=== PATIENT | male | born 1965 | race Two or more races ===

== ENCOUNTER → 2016-06-17 | Outpatient (CLI) | payer BC ==
--- NOTE | 2016-06-17 11:05 | MM ---
Reason for exam: clinical finding. Baseline mammogram. History: Family history of breast cancer in mother at age 70. Physical Findings: Nurse Summary: more prominent right breast posterior nipple tissue, all movable, soft (nurse ts). MG 3D Diag Mammo W/Cad LEONARD Bilateral CC and MLO view(s) were taken. The breast tissue is almost entirely fat. There is no discrete abnormality. These results were verbally communicated with the patient and result sheet given to the patient on 06/17/16. ASSESSMENT: Negative, BI-RAD 1 RECOMMENDATION: Ultrasound of the right breast.
--- NOTE | 2016-06-17 11:06 | USB ---
Reason for exam: additional evaluation requested from abnormal screening. History: Family history of breast cancer in mother at age 70. US Breast Limited BILAT Right breast ultrasound demonstrates no cystic or solid lesion seen. Left breast ultrasound demonstrates no cystic or solid lesion seen. These results were verbally communicated with the patient and result sheet given to the patient on 06/17/16. ASSESSMENT: Negative, BI-RAD 1 RECOMMENDATION: Clinical management of both breasts. Manage patient on a clinical basis.
== END | disposition home or self-care (01) ==
LOC: RADMAMWWP 09:47
PROVIDERS: ATTEND Surgery
DX: N63 Unspecified lump in breast (principal); R92.8 Other abnormal and inconclusive findings on diagnostic imaging of breast
CPT/HCPCS: 76642; G0204; G0279

== ENCOUNTER → 2016-08-19 | Outpatient (CLI) | payer BC ==
--- NOTE | 2016-08-19 21:46 | CONS ---
DATE OF CONSULTATION: This patient is 50. He was asked to come into the sleep center for sleep apnea evaluation. The patient is very much convinced that he has obstructive sleep apnea, knowing that he has done some reading prior to him coming into the office and he states that he is snoring loud and he stops breathing as witnessed by his at home. He wakes up tired and fatigued during the day. He does not fall asleep; however, he has to fight to stay awake. His Appleton score is currently at 17. 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 He does not fall asleep while driving and does not seem to be at an increased risk of getting into a motor vehicle accident because of feeling drowsy or sleepy. Does not smoke does not drink. No substance abuse. He has gained around 70 pounds over the past 5 years and this has made his sleep quality worse. He has been seen by Dr. Mays for difficulties in nose breathing and halitosis. He was evaluated and a surgical recommendation was done by Dr. Mays in favor of tonsillectomy and correction of nasal passages/septum. No sleep paralysis. No hallucinations. No cataplexy. No nocturnal heartburn, palpitations. No anxiety or depression. PAST MEDICAL HISTORY: Obesity. PAST SURGICAL HISTORY: Appendectomy. ALLERGIES: Not known. OUTPATIENT MEDICATIONS: None. SOCIAL HISTORY: Nonsmoker. No history of alcohol. No history of IV drugs. FAMILY HISTORY: Negative for sleep apnea, positive for coronary artery disease. REVIEW OF SYSTEMS: Twelve-point review of systems was positive findings were all mentioned above in the history of present illness. BP is 135/84, pulse 96, respirations 16, temperature 97.8, saturation 96% on room air, weight is 294. Height is 5 foot 10. BMI is 41.5. Neck size 18 inches. GENERAL APPEARANCE: Obese, calm, comfortable. HEENT: Short neck, crowding posterior pharynx. There is no goiter, neck masses. LUNGS: Clear to auscultation. HEART: Sounds are regular rate and rhythm. Normal S1, S2. No S3, no S4. No murmurs. ABDOMEN: Soft, nontender. No organomegaly. EXTREMITIES: No edema. No cyanosis, or clubbing. IMPRESSION: 1. Obstructive sleep apnea suspected and the patient is currently under investigation. 2. Loud snoring and witnessed apneas. Rule out obstructive sleep apnea. 3. Chronic hypersomnia and Appleton score of 17. 4. Chronic rhinitis and difficulties with nose breathing and tonsillar enlargement, currently undergoing an ENT evaluation by Dr. Mays. 5. Obesity with a body mass index of 41.5 with interval 70 pounds weight gain over the past 5 years. PLAN: 1. Encourage weight loss. 2. Implement good sleep hygiene measures. 3. Continue follow-up with Dr. Mays regarding breathing and nasal symptoms. 4. Proceed with a screening polysomnogram, looking for any significant obstructive sleep apnea that warrant further treatment. We will coordinate our team with Dr. Mays. If surgery is being considered, we will delay his treatment for a while until he undergoes his complete ENT evaluation.
== END | disposition home or self-care (01) ==
LOC: SLEEP 14:42
PROVIDERS: ATTEND Internal Medicine Critical Care Medicine
DX: G47.10 Hypersomnia, unspecified (principal); R06.81 Apnea, not elsewhere classified; J31.0 Chronic rhinitis; J35.1 Hypertrophy of tonsils; E66.9 Obesity, unspecified; Z68.41 Body mass index [BMI] 40.0-44.9, adult
CPT/HCPCS: 99211

== ENCOUNTER → 2016-10-16 | Outpatient (CLI) | payer BC ==
--- NOTE | 2016-10-16 10:22 | XR ---
EXAMINATION TYPE: XR foot complete RT DATE OF EXAM ORDERED: 10/16/2016 HISTORY: M10.09 idiopathic gout. COMPARISON: None. FINDINGS: There are moderate degenerative changes in the right first MTP joint. There is a mild franco ux valgus deformity. No fracture or dislocation is seen. Note is made of a small plantar calcaneal sp ur. IMPRESSION: 1. NO ACUTE OSSEOUS LESION. 2. DEGENERATIVE CHANGE, RIGHT FIRST MTP JOINT. 3. PLANTAR CALCANEAL SPUR.
== END | disposition home or self-care (01) ==
LOC: RADXRMAIN 09:54
PROVIDERS: ATTEND Family Medicine
DX: M77.31 Calcaneal spur, right foot (principal); M10.09 Idiopathic gout, multiple sites

== ENCOUNTER → 2020-04-04 | Day surgery (SDC) | payer BC ==
[2020-04-02 10:31] VITALS: BMI 39.4
[~2020-04-04] MED LIST: LACTATED RINGERS 1,000 ML IV SCH; PROPOFOL 10 MG/ML 20 ML VIAL IV ONE
[2020-04-04 08:22] VITALS: RESP 16; TEMP 98.1
--- NOTE | 2020-04-04 08:40 | P.GSHP ---
History of Present Illness H&P Date: 04/04/20 CHIEF COMPLAINT: Colon screen HISTORY OF PRESENT ILLNESS: The patient is a 54-year-old male who presents for colon screen. Lower endoscopy was offered for further evaluation and management. PAST MEDICAL HISTORY: Please see list. PAST SURGICAL HISTORY: Please see list. MEDICATIONS: Please see list. ALLERGIES: Please see list. SOCIAL HISTORY: No illicit drug use FAMILY HISTORY: No reports of Crohn disease or ulcerative colitis. REVIEW OF ORGAN SYSTEMS: CONSTITUTIONAL: No reports of fevers or chills. PHYSICAL EXAM: VITAL SIGNS: Stable GENERAL: Well-developed pleasant in no acute distress. HEENT: No scleral icterus. Extraocular movements grossly intact. Moist buccal mucosa. NECK: Supple without lymphadenopathy. CHEST: Unlabored respirations. Equal bilateral excursions. CARDIOVASCULAR: Regular rate and rhythm. Distal 2+ pulses. ABDOMEN: Soft, nontender, nondistended. MUSCULOSKELETAL: No clubbing, cyanosis, or edema. ASSESSMENT: 1. Colon screen. PLAN: 1. Recommend proceeding with a lower endoscopy Past Medical History Past Medical History: No Reported History Additional Past Medical History / Comment(s): GOUT History of Any Multi-Drug Resistant Organisms: None Reported Past Surgical History: Appendectomy Past Anesthesia/Blood Transfusion Reactions: No Reported Reaction, Motion Sickness Smoking Status: Never smoker - Past Family History Mother Family Medical History: Cancer Medications and Allergies Home Medications Medication Instructions Recorded Confirmed Type No Known Home Medications 04/02/20 04/04/20 History Allergies Allergy/AdvReac Type Severity Reaction Status Date / Time No Known Allergies Allergy Verified 04/04/20 08:13 Surgical - Exam Vital Signs Temp Pulse Resp BP Pulse Ox 98.1 F 67 16 115/70 96 04/04/20 08:18 04/04/20 08:18 04/04/20 08:18 04/04/20 08:18 04/04/20 08:18
--- NOTE | 2020-04-04 09:11 | P.PCN ---
Date of Procedure: 04/04/20 Description of Procedure: PREOPERATIVE DIAGNOSIS: Colonoscopy screening, first Family history colon cancer POSTOPERATIVE DIAGNOSIS: Colonoscopy screening. Family history colon cancer Diverticulosis, scattered. OPERATION: Colonoscopy to the cecum, ileocecal valve and appendiceal orifice. SURGEON: Melody Groves MD. ANESTHESIA: MAC. INDICATIONS: The patient is a 54-year-old male who presents for his first colonoscopy screening. Benefits and risks were described and informed consent was obtained. DESCRIPTION OF PROCEDURE: The patient had undergone Suprep Dulcolax prep. He had been brought into the operating room and laid in the left lateral decubitus position. After adequate intravenous sedation, the rectum was examined with 2% lidocaine jelly. The prostate was unremarkable. No external hemorrhoids were encountered. The rectal tone was within normal limits. No lesions were palpated in the rectal vault. An Olympus colonoscope was advanced until the cecum, ileocecal valve and appendiceal orifice were clearly viewed. The prep was good. Scattered diverticulosis was encountered. No colonic polyps were found. No evidence of focal colitis was found. Retroflexion of the scope demonstrated grade 1 internal hemorrhoids without active bleeding or inflammation. The colon was desufflated. The patient had tolerated the procedure well. Withdrawal time was over 6 minutes. FINDINGS: Aronchick preparation quality scale 2 (1-5) Internal hemorrhoids, grade 1 No external prolapsed hemorrhoids. No arteriovenous malformations. No adenomatous polyps. No focal colitis. Scattered sigmoid diverticulosis RECOMMENDATIONS: Lower endoscopy in 5 years2024 Plan - Discharge Summary Discharge Rx Participant: No New Discharge Prescriptions: Continue No Known Home Medications Discharge Medication List No Known Home Medications 04/02/20 [History] Follow up Appointment(s)/Referral(s): Melody Groves MD [STAFF PHYSICIAN] - As Needed Patient Instructions/Handouts: Diverticulosis Diet (GEN), Diverticulosis (DC) Activity/Diet/Wound Care/Special Instructions: Repeat colonoscopy 5 years, 2024 Discharge Disposition: HOME SELF-CARE
[2020-04-04 09:22] VITALS: BP 113/73; PULSE 75
== END | disposition home or self-care (01) ==
LOC: ORWHC2ENDO 07:59
PROVIDERS: ATTEND Surgery Plastic and Reconstructive Surgery
DX: Z12.11 Encounter for screening for malignant neoplasm of colon (principal); K57.30 Diverticulosis of large intestine without perforation or abscess without bleeding; K64.0 First degree hemorrhoids; Z80.0 Family history of malignant neoplasm of digestive organs; M10.9 Gout, unspecified; Z90.49 Acquired absence of other specified parts of digestive tract
CPT/HCPCS: J2704; G0105

== ENCOUNTER → 2021-06-11 | Outpatient (CLI) | payer BC ==
--- NOTE | 2021-06-11 12:05 | XR ---
EXAMINATION TYPE: XR chest 2V DATE OF EXAM: 06/11/2021 COMPARISON: NONE TECHNIQUE: PA and lateral views submitted. HISTORY: Cough FINDINGS: The lungs are clear and there is no pneumothorax, pleural effusion, or focal pneumonia. Heart size normal. No overt failure. Biapical pleural mild hyperinflation. Hypertrophic change of the spine. Cor relate for mild COPD. Thickening along the left lateral rib cage. IMPRESSION: 1. No acute process. 2. There is increased density along the left lateral rib cage is related to previous trauma and pleur al or osseous deformities correlate with CT chest as clinically warranted.
== END | disposition home or self-care (01) ==
LOC: RADXRMAIN 11:43
PROVIDERS: ATTEND Nurse Practitioner Family
DX: R05.3 Chronic cough (principal)
CPT/HCPCS: 71046

== ENCOUNTER → 2024-05-20 | Outpatient (CLI) | payer BC ==
--- NOTE | 2024-05-20 20:09 | US ---
EXAMINATION TYPE: US carotid duplex BILAT DATE OF EXAM: 05/20/2024 COMPARISON: NONE CLINICAL INDICATION: Male, 58 years old with history of R42 Dizziness and giddiness; Additional History: .... TECHNIQUE: Grayscale, color Doppler and spectral Doppler evaluation of the bilateral carotid systems and vertebral arteries. Indirect Doppler criteria was utilized. FINDINGS: EXAM MEASUREMENTS: RIGHT: Peak Systolic Velocity (PSV) cm/sec ----- Right CCA: 111.3 ----- Right ICA: 101.1 ----- Right ECA: 118.6 ICA/CCA ratio: 0.9 RIGHT: End Diastole cm/sec ----- Right CCA: 44.5 ----- Right ICA: 35.7 ----- Right ECA: 29.9 LEFT: Peak Systolic Velocity (PSV) cm/sec ----- Left CCA: 113.4 ----- Left ICA: 103.0 ----- Left ECA: 101.7 ICA/CCA ratio: 0.9 LEFT: End Diastole cm/sec ----- Left CCA: 46.1 ----- Left ICA: 38.3 ----- Left ECA: 30.5 VERTEBRALS (direction of flow): Right Vertebral: Antegrade Left Vertebral: Antegrade Rhythm: Normal [employer] NOTES: No elevated velocities Color Doppler imaging shows patency with blood flow throughout the carotid artery. Spectral waveforms are within normal limits. IMPRESSION: Right: No hemodynamically significant stenosis. Left: No hemodynamically significant stenosis. Criteria for Assigning % of Stenosis / Diameter reduction (Estimation based on the indirect measurements of the internal carotid artery velocities (ICA PSV). 1. Normal (no stenosis)=ICA PSV < 125 cm/s: ratio < 2.0: ICA EDV<40 cm/s. 2. Less than 50% stenosis=ICA PSV < 125 cm/s: ratio < 2.0: ICA EDV<40 cm/s. 3. 50 to 69% stenosis=ICA PSV of 125 to 230 cm/s: ration 2.0 ? 4.0: ICA EDV 40-100 cm/s. 4. Greater than 70% stenosis to near occlusion= ICA PSV > 230 cm/s: ratio > 4.0: ICA EDV > 100 cm/s. 5. Near occlusion= ICA PSV velocities may be low or undetectable: variable ratio and ICA EDV. 6. Total occlusion=unable to detect flow. [facility], , 05/20/2024 8:07 PM
== END | disposition home or self-care (01) ==
LOC: RADUSWWP 06:47
PROVIDERS: ATTEND Family Medicine
DX: R42 Dizziness and giddiness (principal)
CPT/HCPCS: 93880

== ENCOUNTER → 2024-07-13 | Outpatient (CLI) | payer BC ==
--- NOTE | 2024-07-13 10:22 | XR ---
EXAMINATION TYPE: XR lumbosacral spine min 4V DATE OF EXAM: 07/13/2024 9:59 AM COMPARISON: None. CLINICAL INDICATION: Male, 58 years old with history of M54.31 sciatica R side, pain TECHNIQUE: Frontal, lateral, and bilateral oblique images of the lumbar spine are obtained. FINDINGS: There are 5 lumbar type vertebral bodies identified. The lumbar spine shows satisfactory alignment without evidence of acute fracture or dislocation. Vertebral body heights and disk space he ights are within normal limits. Mild multilevel anterior and lateral spurring is present. The obliqu e images appear within normal limits. The overlying soft tissue appears unremarkable. IMPRESSION: As above. [facility], , 07/13/2024 10:20 AM
== END | disposition home or self-care (01) ==
LOC: RADXRMAIN 09:44
PROVIDERS: ATTEND Family Medicine
DX: M54.31 Sciatica, right side (principal)
CPT/HCPCS: 72110

== ENCOUNTER → 2024-08-24 | Outpatient (CLI) | payer BC ==
--- NOTE | 2024-08-24 08:45 | MR ---
EXAMINATION TYPE: MR lumbar spine wo con DATE OF EXAM: 08/24/2024 COMPARISON: Lumbar spine x-ray July 13, 2024 HISTORY: Low back pain into rt side, numbness TECHNIQUE: Multiplanar, multisequence imaging of the lumbar spine is performed without IV contrast. FINDINGS: Sagittal images of the lumbar spine show vertebral body heights and alignment to appear sat isfactory. The intervertebral discs demonstrate normal heights and hydration. The conus medullaris i s normal in signal, slightly low in position ending mid L2 level. No suspicious clumping of the lumbo sacral nerve roots is present. Small osseous hemangioma at the L1 vertebral body level sagittal image 10 is noted. Axial images show T12-L1 through L2-L3 level to appear within normal limits. Axial images at L3-L4 level shows mild facet arthropathy bilaterally. Axial images at L4-L5 level shows mild broad-based posterior disc protrusion and mild to moderate fac et arthropathy bilaterally. Spinal canal is preserved. There is mild to moderate right greater than l eft bilateral neural foraminal narrowing. Axial images at the L5-S1 level shows moderate facet arthropathy bilaterally. There is mild to modera te bilateral neural foraminal narrowing. Spinal canal is preserved. Paraspinal muscle bulk is maintained. There are a few small simple appearing thin-walled cyst central ly in the left kidney. IMPRESSION: Multilevel degenerative change in the mid to lower lumbar spine as detailed above. No patrick picious focal disc herniation identified. [facility], , 08/24/2024 8:43 AM
== END | disposition home or self-care (01) ==
LOC: RADMRIMAIN 06:45
PROVIDERS: ATTEND Family Medicine
DX: M47.816 Spondylosis without myelopathy or radiculopathy, lumbar region (principal); M51.360 Other intervertebral disc degeneration, lumbar region with discogenic back pain only; N28.1 Cyst of kidney, acquired; M54.41 Lumbago with sciatica, right side; M99.73 Connective tissue and disc stenosis of intervertebral foramina of lumbar region
CPT/HCPCS: 72148